=== PATIENT | male | born 1955 | race Caucasian/White ===

== ENCOUNTER → 2018-01-20 09:30 | Outpatient (CLI) | payer OTHER, SELFPAY ==
--- NOTE | 2018-01-20 09:32 | CDU_ITS ---
Reason For Study: carotid stenosis Rt. Velocities/BP Lt. Velocities/BP Prox CCA 119.0/31.7 cm/sec. Prox CCA 133.0/32.2 cm/sec. Mid CCA 100.0/34.0 cm/sec. Mid CCA 141.0/33.0 cm/sec. Dist CCA 62.7/19.9 cm/sec. Dist CCA 143.0/33.8 cm/sec. Prox ICA 72.7/25.2 cm/sec. Prox ICA 151.0/44.8 cm/sec. PROX STENT= 132.0/42.4 Mid ICA 127.0/50.3 cm/sec. MID STENT = 133.0/24.4 Dist ICA 123.0/38.5 cm/sec. DISTAL STENT = 106.0/35.4. Lt. ICA/CCA = 151.0/141.0=1.07. Dist ICA 122.0/40.9 cm/sec. Prox ECA 138.0/23.6 cm/sec. Prox ECA 123.0/21.2 cm/sec. Lt. Vert. 73.9/31.8 cm/sec. Rt. Vert. 56.6/18.1 cm/sec. Right Extracranial There is intimal thickening but no significant atherosclerotic plaque noted in the right common carotid artery. BRET stent is patent. There is no significant atherosclerotic plaque noted in the right external carotid artery. Antegrade flow is noted in the right vertebral artery. Left Extracranial There is homogeneous, smooth atherosclerotic plaque noted in the left common carotid artery. There is heterogeneous, irregular atherosclerotic plaque noted in the left internal carotid artery. There is intimal thickening but no significant atherosclerotic plaque noted in the left external carotid artery. Antegrade flow is noted in the left vertebral artery. There is heterogeneous, irregular atherosclerotic plaque noted in the left bulb. Procedure Carotid Duplex 99106. The exam was diagnostic. Exam performed in department. Interpretation Summary Mild (<50%) stenosis right extracranial internal carotid. Moderate (50-69%) stenosis left extracranial internal carotid. Flow within the vertebral arteries is antegrade bilaterally. right carotid stent widley patent and no significant stenosis seen but just mildly elevated psv noted. left common through internal carotid artery is mildly elevated and normal ratio noted. Ordering Physician: HARLAN IVORY Referring Physician: OTD Performed By: Melissa Sanabria RDCS, TRAM
== END ==
PROVIDERS: Visit Provider Surgery Vascular Surgery
DX: I65.21 Occlusion and stenosis of right carotid artery (principal)
CPT/HCPCS: 93880